=== PATIENT | male | born 1950 | race Caucasian/White ===

== ENCOUNTER 2018-04-12 08:26 | Day surgery (SDC) | payer MEDICARE ==
[~2018-04-12] VITALS: Ht 180.3 cm; Wt 114.1 kg
[~2018-04-12 08:26] MED LIST: ALBU90OI INH; ALPR.5 PO; ALPR.5CR; ASPI81CH PO; Aspir 8181 MG PO; Cymbalta60 MG PO; GABA300 PO; GABA400 PO; Isosorbide Mono30 MG PO; Isosorbide Mono60 MG PO; LOSA50 PO; METO25; METO25 PO; PRAV20 PO; TAMS.4ER PO; VENL75ER PO
--- NOTE | 2018-04-12 09:43 | NUR ---
04/12/[address] AT BEDSIDE, CONSULT WITH PATIENT. SITE CHECKED. 0927: 1MG VERSED IVP ADMINISTERED 0929: PROCEDURE BEGAN. DR. LOONEY ADMINISTER 10ML BUPIVACAINE HCL & EPINEPHRINE 0.5% 1:200,000. 0937: PROCEDURE FINISHED. PT TOLERATED WELL.
== END 2018-04-12 10:44 | disposition home or self-care (01) ==
LOC: ORSCSDS 08:26
PROVIDERS: Orthopaedic Surgery
PROC: 01N54ZZ Release Median Nerve, Percutaneous Endoscopic Approach (ICD-10-PCS; principal; 2018-04-12 09:30)
DX: G56.01 Carpal tunnel syndrome, right upper limb (principal); I10 Essential (primary) hypertension; I25.2 Old myocardial infarction; J45.909 Unspecified asthma, uncomplicated; E66.9 Obesity, unspecified; Z68.35 Body mass index [BMI] 35.0-35.9, adult; Z87.891 Personal history of nicotine dependence; Z79.82 Long term (current) use of aspirin; Z79.899 Other long term (current) drug therapy
CPT/HCPCS: J0690; J2250; J2370; J3010; J7120

== ENCOUNTER 2019-11-13 02:50 | Emergency (ER) | payer MEDICARE, OTHER ==
[~2019-11-13] VITALS: Ht 182.9 cm; Wt 118.4 kg
[2019-11-13] MEDS ORDERED: PROZAC20 MG PO (03:08)
[2019-11-13 03:21] LABS: BASOPHILS ABSOLUTE AUTO 0.07 K/mm3 (0.00-0.23); BASOPHILS PERCENT AUTO 1 % (0-2); EOSINOPHILS ABSOLUTE AUTO 0.11 K/mm3 (0.00-0.68); EOSINOPHILS PERCENT AUTO 1 % (0-6); Hematocrit 46.6 % (37.0-53.0); Hemoglobin 16.6 g/dL (13.5-17.5); IMMATURE GRAN ABSOLUTE AUTO 0.05 K/mm3 (0.00-0.10); IMMATURE GRAN PERCENT AUTO 0 % (0-1); LYMPHOCYTES ABSOLUTE AUTO 3.27 K/mm3 (0.84-5.20); LYMPHOCYTES PERCENT AUTO 25 % (21-46); MONOCYTES ABSOLUTE AUTO 1.17 K/mm3 (0.16-1.47); MONOCYTES PERCENT AUTO 9 % (4-13); Mean Corpuscular HGB 33.2 pg (26.0-34.0); Mean Corpuscular HGB Conc 35.6 g/dL (31.5-36.5); Mean Corpuscular Volume 93 fL (80-100); Mean Platelet Volume 9.9 fL (9.1-12.4); NEUTROPHILS ABSOLUTE AUTO 8.57 K/mm3 (1.96-9.15); NEUTROPHILS PERCENT AUTO 65 % (41-73); Platelet Count 150 K/mm3 (150-400); RDW Coefficient Variation 12.4 % (11.7-14.2); RDW Standard Deviation 42.8 fL (35.1-46.3); White Blood Cell Count 13.24 K/mm3 (4.00-11.30)
[2019-11-13 03:41] LABS: Alanine Aminotransfer (ALT/SGP 28 U/L (12-78); Albumin, Blood 3.9 g/dL (3.4-5.0); Albumin/Globulin Ratio 1.1 (0.8-1.8); Alk Phos 67 U/L (50-136); Anion Gap 5 mmol/L (6-16); Aspartate Aminotrans (AST/SGOT 22 U/L (12-37); Bilirubin, Total 0.9 mg/dL (0.1-1.0); Blood Urea Nitrogen 14 mg/dL (8-24); Bun/Creatinine Ratio 15.3 (12.0-20.0); CO2, Blood 25 mmol/L (21-32); Calcium, Blood 8.7 mg/dL (8.5-10.1); Chloride, Blood 105 mmol/L (98-108); Creatinine, Blood 0.92 mg/dL (0.60-1.20); Globulin, Blood 3.6 g/dL (2.2-4.0); Glomerular Filtration Rate >60 (60-); Glucose, Blood 113 mg/dL (70-99); Potassium, Blood 3.9 mmol/L (3.5-5.5); Sodium, Blood 135 mmol/L (136-145); Total Protein, Blood 7.5 g/dL (6.4-8.2); Troponin I <0.015 ng/mL (0.000-0.040)
== END 2019-11-13 04:56 | disposition home or self-care (01) ==
LOC: ER 02:50
PROVIDERS: Emergency Medicine
DX: R07.89 Other chest pain (principal); R06.02 Shortness of breath; G47.00 Insomnia, unspecified; R05 Cough; R61 Generalized hyperhidrosis; F17.210 Nicotine dependence, cigarettes, uncomplicated; Z91.09 Other allergy status, other than to drugs and biological substances; Z88.5 Allergy status to narcotic agent; Z79.899 Other long term (current) drug therapy; Z79.82 Long term (current) use of aspirin; Z95.1 Presence of aortocoronary bypass graft
CPT/HCPCS: 71046; 80053; 84484; 85025; 93005; 93010; 96374; 99285-25; J1885

== ENCOUNTER → 2020-10-27 | Outpatient (CLI) | payer MEDICARE ==
[~2020-10-27] MED LIST changes: +PROZAC20 MG PO
[2020-10-29 17:23] LABS: CORONAVIRUS (COVID19) CSH-NRL Negative (Negative)
== END ==
LOC: LAB SHORT 16:00 → LAB 16:00
PROVIDERS: Physician Assistant
DX: J06.9 Acute upper respiratory infection, unspecified (principal); Z20.822 Contact with and (suspected) exposure to COVID-19; Z88.5 Allergy status to narcotic agent; Z91.048 Other nonmedicinal substance allergy status; Z88.8 Allergy status to other drugs, medicaments and biological substances
CPT/HCPCS: U0003

== ENCOUNTER 2023-11-22 10:41 | Day surgery (SDC) | payer OTHER ==
[~2023-11-22] VITALS: Ht 180.3 cm; Wt 104.0 kg
[~2023-11-22 10:41] MED LIST changes: +ATOR40TA PO; +BENZ100A PO; +CLOP75 PO; +ISOSORBIDE MONO60 MG PO; -Isosorbide Mono60 MG PO; +Lactated Ringer's 1,000 ML IV ONE; +NITR.4SL SL; +POTA10T PO; -PROZAC20 MG PO; +Prozac20 MG PO; +TORSE20 PO
[2023-11-22] MEDS ORDERED: Midazolam HCl 1MG / ML 2ML Vial ONE (11:39)
[2023-11-22] MEDS ORDERED: Lactated Ringer's 1,000 ML IV ONE (11:51)
[2023-11-22 12:25] VITALS: BP 109/61
== END 2023-11-22 12:50 | disposition home or self-care (01) ==
LOC: ORSCSDS 10:41
PROVIDERS: Orthopaedic Surgery
PROC: 01N54ZZ Release Median Nerve, Percutaneous Endoscopic Approach (ICD-10-PCS; principal; 2023-11-22 12:00)
DX: G56.02 Carpal tunnel syndrome, left upper limb (principal); J44.9 Chronic obstructive pulmonary disease, unspecified; Z79.02 Long term (current) use of antithrombotics/antiplatelets; Z79.82 Long term (current) use of aspirin; Z79.899 Other long term (current) drug therapy
CPT/HCPCS: J2250; J7120

== ENCOUNTER 2024-12-12 06:16 | Day surgery (SDC) | payer OTHER ==
[~2024-12-12] VITALS: Ht 182.9 cm; Wt 106.4 kg
[2024-12-12] VITALS (25 sets, daily range): BP systolic 85–145; BP diastolic 52–107
[~2024-12-12 06:16] MED LIST changes: +ASCO500 PO; +JARDIANCE10 MG PO; -Lactated Ringer's 1,000 ML IV ONE; +MELATONIN5 M1; +OXYACE7.5T PO; +VITAMIN B121000 MCG PO; +Vitamin D1000 UNI1 PO
[2024-12-12] MEDS ORDERED: CeFAZolin Sodium 2,000 MG in NS 100 ML IV SCH ×2 (06:35→16:00)
[2024-12-12] MEDS ORDERED: Tranexamic Acid 100 ML IV SCH (06:41)
[2024-12-12] MEDS ORDERED: FentaNYL Citrate 50 MCG/ML 2 ML Injection ONE ×3 (06:59→11:03)
[2024-12-12] MEDS ORDERED: Midazolam HCl 1MG / ML 2ML Vial ONE (06:59)
[2024-12-12] MEDS ORDERED: Chlorhexidine Mouth Care 15 ML UDC MT SCH (07:00)
[2024-12-12] MEDS ORDERED: Rocuronium Bromide 10 MG/ML 5ML Injection IV ONE ×2 (07:02→08:34)
[2024-12-12] MEDS ORDERED: Ondansetron HCl 2 MG / ML 2ML Vial ONE ×2 (07:02→10:14)
[2024-12-12] MEDS ORDERED: Dexamethasone Sod Phos 10 MG/ML 1ML VIAL ONE (07:02)
--- NOTE | 2024-12-12 07:05 | NUR ---
History, Chart, Medications and Allergies reviewed before start of procedure. Patient reports completing Chlorhexadine shower X2 prior to admission to hospital. Pre-Op teaching done. Pt verbalizes understanding. Lungs clear T/O to Auscultation. Patient confirms NPO status and agrees with scheduled surgery. PT appears slightly sedated, biox at first while resting was 91% but after encouragement pt biox up to 97%. pt took xanax and pain medications about an hour prior to arrival.
[2024-12-12] MEDS ORDERED: Bupivacaine 0.5% HCl 5 MG/ML 30MLVIAL ONE ×2 (07:29→11:09)
[2024-12-12] MEDS ORDERED: Phenylephrine HCl 100 MCG/ML-NS 10MLSYR (1MG/10ML) ONE (07:57)
--- NOTE | 2024-12-12 07:57 | NUR ---
TIME OUT OF INTERSCALING BLOCK WITH DR. TREVINO 0717 START 0735 COMPLETED 0747 - PT ON O2 VIA NC AT 2L, BIOX. TOLERATED WELL
[2024-12-12] MEDS ORDERED: Vancomycin HCl 1000 MG ADDvantage ONE (08:05)
[2024-12-12] MEDS ORDERED: ePHEDrine Sulfate 50 MG/ML 1ML Injection ONE (08:10)
[2024-12-12] MEDS ORDERED: Ketorolac Tromethamine 30mg Vial ONE (10:14)
[2024-12-12] MEDS ORDERED: FentaNYL Citrate 50 MCG/ML 2 ML Injection IV PRN ×2 (10:15→10:20)
[2024-12-12] MEDS ORDERED: Sugammadex Sodium 200 MG/2ML SDV (100 MG/ML) ONE (10:15)
[2024-12-12] MEDS ORDERED: HYDROmorphone HCl/Pf 1MG SYR IV PRN ×2 (10:20)
[2024-12-12] MEDS ORDERED: Ondansetron HCl 2 MG / ML 2ML Vial IV PRN (10:20)
[2024-12-12] MEDS ORDERED: HYDROmorphone HCl/Pf 1MG SYR ONE ×2 (10:34→11:03)
--- NOTE | 2024-12-12 13:15 | NUR ---
PT ARRIVED TO RM 221 AT 1200 IN BED. ORIENTED TO USE OF CALL LIGHT. VSS. DROWSY. PT DENIES ANY PAIN TO LUE. IMMOBLIZER IN PLACE. LCA W/DIM BASES. 02 97% ON 3L NC. HRR. BTX4. AQUACEL DRESSING TO LUE CDI. POLAR PACK IN PLACE.
--- NOTE | 2024-12-12 16:02 | NUR ---
PT WANTS TO DISCHARGE HAS NO PAIN, ARM NUMB FROM POST OP BLOCK FOR PAIN. LUE IN IMMOBLIZER. PT HAS TOLERATED DIET, VOIDED, HAD BM AND AMBULATED IN [place]. REVIEWED DC INSTRUCTIONS W/PT; VERBALIZED UNDERSTANDING. PROVIDED AQUACEL DRESSING.
--- NOTE | 2024-12-12 16:15 | NUR ---
PT PACKED AND WAITING FOR SPOUSE TO OPTOMETRY ASSISTANT SITTING IN CHAIR, CALL LIGHT IN REACH. DENIES ANY NEEDS.
--- NOTE | 2024-12-12 16:33 | NUR ---
discharged pt left unit in wc w/possessions and dc paperwork in hand to meet ride waiting outside.
== END 2024-12-12 16:28 | disposition home or self-care (01) ==
LOC: ORSCMMR 06:16 → ORD 07:30 → ORSCMMR 07:30 → SURS 12:11 → ORSCMMR 16:28
PROVIDERS: Orthopaedic Surgery Sports Medicine
PROC: 0RRK00Z Replacement of Left Shoulder Joint with Reverse Ball and Socket Synthetic Substitute, Open Approach (ICD-10-PCS; principal; 2024-12-12 07:30)
DX: M19.012 Primary osteoarthritis, left shoulder (principal); M75.112 Incomplete rotator cuff tear or rupture of left shoulder, not specified as traumatic; I10 Essential (primary) hypertension; I25.10 Atherosclerotic heart disease of native coronary artery without angina pectoris; J44.9 Chronic obstructive pulmonary disease, unspecified; Z85.118 Personal history of other malignant neoplasm of bronchus and lung; Z79.02 Long term (current) use of antithrombotics/antiplatelets; Z79.899 Other long term (current) drug therapy; Z79.82 Long term (current) use of aspirin; F41.9 Anxiety disorder, unspecified
CPT/HCPCS: 73030; A9270; C1713; C1776; J0690; J1100; J1171; J1885; J2250; J2371; J2405; J2704; J3010; J3373; J7050; J7120